=== PATIENT | male | born 1955 | race Caucasian/White ===

== ENCOUNTER 2019-11-26 19:45 | Inpatient (IN) | payer OTHER ==
[~2019-11-26] VITALS: Ht 188 cm; Wt 72.6 kg
[2019-11-26 19:45] VITALS: BP 160/99
[~2019-11-26 19:45] MED LIST: DOXYCYCLINE 10100 MG PO; HYDROCODONE-APA1 TA1 PO
[2019-11-26] MEDS ORDERED: ZYPREXA2.5 MG PO ×2 (22:42→22:44)
[2019-11-26] MEDS ORDERED: ZYPREXA2.5 MG IM (22:45)
[2019-11-26] MEDS ORDERED: MIRTAZAPINE7.5 MG PO (22:46)
[2019-11-27 01:22] VITALS: BP 165/96
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
[2019-11-27 07:48] VITALS: BP 110/69
[2019-11-27 13:47] VITALS: BP 110/69
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
--- NOTE | 2019-11-27 17:23 | NUR ---
ASSUMED CARE AT 0700 THIS MORNING. PT. UP, SHOWERED AND DRESSED. HE CONTINUES TO HAVE SAD AFFECT AND DEPRESSED MOOD. HE TOLD DR. MONTGOMERY HE WANTS TO LEAVE AMA TODAY. AFFIDAVITS FILLED OUT AT THE HOSPITAL WHERE HE WRAPPED A CORD AROUND HIS NECK AND BY ANOTHER PERSON WERE FILED WITH THE 96 HOUR HOLD. HE TOOK HIS MEDICATIONS WITHOUT DIFFICULTIES. PAPERS FAXED TO THE COURT HOUSE AND LAUNDRY MANAGER.
[2019-11-27 19:25] VITALS: BP 122/77
--- NOTE | 2019-11-27 20:43 | NUR ---
Pt. refused HS meds. Education done regarding medications and their actions and he refused a second time.
--- NOTE | 2019-11-27 21:27 | NUR ---
Pt. c/o pain to left lateral chest and was offered Ibuprofen or Tylenol. He said, "you have to f---ing be kidding me". He scoffed and turned over in bed facing his back toward me. Pt whinces while repositioning but continues to refuse analgesics that are currently ordered. Pt. was asked not to use curse words or foul language. Education done with patient regarding starting with non-narcotic measures for pain control and progressing to other meds if no relief is obtained. He again refused Ibuprofen or Tylenol. He denies hearing his sisters' voices and denies SI/HI/VH.
[2019-11-27 23:19] VITALS: BP 122/77
[2019-11-28 08:51] VITALS: BP 129/97
--- NOTE | 2019-11-28 10:39 | NUR ---
ASSUMED CARE AT 0700. Pt awake and in the shower. Pt walked into dining area for meal. Pt took and tolerated all meds without difficulty. Pt reported pain on right side abdomen 6/10, given scheduled Lidocaine patch and PRN Ibuprofen with minimal relief. Pain went down to 4 after reassessment in 1 hour. Pt is cooperative although continues to be in a depressed mood and unhappy with not being able to discharge. Pt denies SI/HI and denies any current hallucinations. Will continue to monitor.
[2019-11-28 11:53] VITALS: BP 129/97
--- NOTE | 2019-11-28 14:14 | NUR ---
HOMAR and Dr. Gamez reviewed pt's ELVIRA with him and saw they okayed him to live alone. Dr. Gamez said it is okay for pt to discharge today if his sister can transport. HOMAR contacted Erin who said she can pick him up at 1600. HOMAR contacted Kem who took pt's information and will have the intake person contact him sometime tomorrow after 9am.
--- NOTE | 2019-11-28 14:39 | NUR ---
KEYONA D/C Note KEYONA provided a update to nursing staff about pt's discharge at 1600. Keyona also reviewed again with pt the protocol for [facility] to contact him in the morning after 9am. No other needs for SW team to address at this time.
[2019-11-28] MEDS ORDERED: LISINOPRIL5 MG PO (15:07)
[2019-11-28] MEDS ORDERED: TRAZODONE HCL50 MG PO (15:07)
[2019-11-28] MEDS ORDERED: SEROQUEL 25 MG25 M1 PO (15:09)
[2019-11-28] MEDS ORDERED: COLACE 100 MG100 MG PO (15:09)
[2019-11-28] MEDS ORDERED: LIDOPATCH1 EACH TRANSDERM (15:10)
[2019-11-28] MEDS ORDERED: PANTOPRAZOLE SO40 M1 PO (15:10)
[2019-11-28 16:12] VITALS: BP 129/97
--- NOTE | 2019-11-28 16:19 | NUR ---
PT discharged at 1600. Pt was ambulatory and escorted to sister's vehicle by nursing staff. Pt was given all belongings that were inventoried upon admission. Pt also given written Rx's and copy of d/c summary. Pt denies any current SI/HI. Pt also denies any AH/VH at this time.
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
--- NOTE | 2019-11-29 22:48 | D ---
[facility] [place] [address] [place] [address] DISCHARGE SUMMARY Name: OSCAR MORA Room #: 522A-A [facility] IN M.R.#: [id number] Admission: 11/26/19 Attend Phys: Osorio Gamez DO Discharge: 11/28/19 Date of : 51 Report #: [id number] THIS REPORT FOR: cc: KHLOE - No family physician/PCP NO FAMILY PHYSICIAN or PCP Osorio Gamez DO ~ THIS REPORT FOR: //name// CC: Osorio Gamez FAM physician/PCP NO PCP DATE OF SERVICE: 11/28/2019 INPATIENT PSYCHIATRIC DISCHARGE SUMMARY ATTENDING PSYCHIATRIST: Osorio Gamez DO. ROUSTABOUT CREW PUSHER: Carmel Jose NP and Missy Danielle MD DISCHARGE DIAGNOSES: Bipolar 2 disorder, status post delirium secondary to fall, medication factors, resolved. The patient's general medical diagnoses include left 6 and 7 fracture of the ribs, hypertension, emphysema, extensive tobacco use disorder, and thoracic compression of the spine per CT. diet: regular activity: as tolerated no alcohol, no illicit drugs smoking cessation encourged- Patient made aware of [facility] resources The patient is discharged into a studio apartment. The patient is referred to [facility] for intake, psychiatrist, therapist and case management services. He also needs to establish with a PCP as he does have hypertension. He should avoid activities that would risk significant physical injury and absolutely abstain from alcohol and other recreational drugs. DISCHARGE MEDICATIONS: Lisinopril 10 mg p.o. daily for hypertension; start trazodone 50 mg p.o. at bedtime p.r.n. sleep; Seroquel 25 mg at 0900, 1500, and 2100 for anxiety and mood stabilization; docusate 100 mg p.o. daily; pantoprazole 40 mg p.o. daily; lidocaine patch 5%, 12 on and 12 off, Rx given for #15; olanzapine and mirtazapine were discontinued on this admission as were [place] and doxycycline. LABORATORY DATA: This admission were relatively few as the patient had ER [facility] [address] [place] [address] DISCHARGE SUMMARY Name: OSCAR MORA Room #: 522A-A [facility] IN M.R.#: [id number] Admission: 11/26/19 Attend Phys: Osorio Gamez DO Discharge: 11/28/19 Date of : 51 Report #: [id number] workup at [facility], and actually as I look here, labs we have are from 10/2016 when he was admitted for a pelvic fracture. REASON FOR ADMISSION: Shortly ago on 11/26/2019, he was referred from [facility]. Apparently, he had made multiple comments to harm himself. He had made some gestures with wrapping a cord around his neck. HOSPITAL COURSE: The patient was admitted to Geriatric Psychiatry Unit, and initially, he had requested Against Medical Advice discharge. First, he was put on a 96-hour hold; however, once the patient was found out he could be discharged before 96 hours were up , he magically became cooperative again. At issue I feel are he is generally isolative, watching TV, staying in his apartment- doign little productive things. I explained to him that without socialization and more productively healthy activities, there is an increased risk of decompensation in mood as well as impulsive behavior. The patient does not want to change his ways. He denies tobacco cessation and my hope is that he will re-establish with [facility] where he previously had services. PHYSICAL EXAMINATION: VITAL SIGNS: Temperature 36.2, pulse 93, respirations 16, BP 129/97. MUSCULOSKELETAL: Normal gait and station. GENERAL: The patient is unkempt with a dodd, tall, BMI 28.5. MENTAL STATUS EXAMINATION: This is a well-developed, tall, thin male, appearing stated age. Attention intact. Concentration intact. Speech is normal rate, volume and tone. Thought process is linear and goal oriented. Thought content focused on discharge. No psychomotor agitation, no psychomotor retardation. Denied SI or HI. Denied auditory, visual, or tactile hallucinations. Mood and affect were congruent and constricted. Memory not formally tested; however, his SLUMS yesterday was 24/30. Also, [facility] the patient, did not do perfect but overall passed for community living. Fund of knowledge below average. PROGNOSIS: For this patient is guarded and will depend if he does adjust risk factors and participate with the outpatient [facility]. <ELECTRONICALLY SIGNED> By: Osorio Gamez DO 11/29/198 27 44 Osorio Gamez DO /nt
== END 2019-11-28 16:00 | disposition home or self-care (01) | DRG 885 ==
LOC: SBH 19:45
PROVIDERS: ADMIT Psychiatry & Neurology Psychiatry
DX: F31.9 Bipolar disorder, unspecified (principal); R45.851 Suicidal ideations; J43.9 Emphysema, unspecified; I77.810 Thoracic aortic ectasia; I10 Essential (primary) hypertension; F20.9 Schizophrenia, unspecified; Z60.2 Problems related to living alone; Z87.891 Personal history of nicotine dependence; Z79.899 Other long term (current) drug therapy
CPT/HCPCS: 10880